=== PATIENT | female | born 1955 | race African-American/Black ===

== ENCOUNTER → 2016-06-03 | Outpatient (CLI) | payer MEDICARE, MEDICAID ==
[~2016-06-03] MED LIST: ASPIRIN 81M81 MG/TA2 PO; ATRIPLA 600 MG-1 TAB PO; CALCIUM 600/VIT1 CAP PO; CELEXA 20MG20 MG/TAB PO; CLARITIN 1010 MG/TAB PO; COLACE 100100 MG/CAP PO; CYTOTEC 10100 MCG/TA PO; CYTOTEC200 MCG PO; FLOVENT 220MCG7.9 GM IH; FOSAMAX 70MG TA70 MG PO; LIPITOR20 MG PO; MOBIC 7.5MG7.5 MG PO; NEOSPORIN1 OIN OP; NORVASC 10MG10 MG PO; NYSTATIN AND TR1 CRE TP; PRILOSEC 20MG20 MG PO; PRINZIDE 25 MG-1 TAB PO; PROCARDIA XL 6060 MG PO; SINGULAIR 110 MG/TAB PO; VALTREX 50500 MG/TAB PO; VENTOLIN0.09 MG IH; VITAMIN B COMPL1 TA1 PO; VITAMIN D1000 IU PO; VOLTAREN 75 DR75 MG PO; [UNRECOGNIZED DRUG - OTHER] PO
== END ==
LOC: COL.VAS 09:12
DX: R06.02 Shortness of breath (principal); R94.2 Abnormal results of pulmonary function studies

== ENCOUNTER → 2017-07-07 | Outpatient (CLI) | payer MEDICARE, MEDICAID | LOC: COL.PUL 12:33 | DX: I27.20 Pulmonary hypertension, unspecified (principal); R06.02 Shortness of breath; Z87.891 Personal history of nicotine dependence | CPT/HCPCS: A9539; A9540; J7674 ==

== ENCOUNTER 2017-07-11 05:02 | Emergency (ER) | payer MEDICARE, MEDICAID ==
[~2017-07-11] VITALS: Ht 167.6 cm; Wt 68.2 kg
[2017-07-11 05:10] VITALS: TEMP 98
[2017-07-11 05:33] LABS: BASO % 0.6 % (0.0-2.0); EOS # 0.1 (0.0-0.7); GRAN # 1.9 (1.4-6.5); HEMOGLOBIN 10.7 g/dl (12.5-16.0); LYMPH # 2.5 (1.2-3.4); LYMPH % 49.7 % (20.0-51.0); MEAN CELL VOLUME 106 fl (80.0-100.0); MEAN CORPUSCULAR HEMOGLOBIN 37 pg (27.0-31.0); MEAN CORPUSCULAR HGB CONC 35 g/dl (33.0-37.0); MEAN PLATELET VOLUME 10.1 fl (7.4-10.4); MONO # 0.5 (0.1-0.6); MONO % 9.1 % (1.7-9.3); PLATELET COUNT 256 K/mm3 (130-400); RED BLOOD COUNT 2.87 M/mm3 (4.10-5.30); REDCELL DISTRIBUTION WIDTH-CV 12.5 % (11.5-14.5)
[2017-07-11 05:36] LABS: HEMATOCRIT 30.3 % (37.0-47.0)
[2017-07-11] MEDS ORDERED: ZYRTEC 10MG10 MG PO (07:45)
[2017-07-11] MEDS ORDERED: RELAFEN750 MG PO (07:46)
[2017-07-11 07:53] VITALS: BP 158/92; PULSE 82
== END 2017-07-11 07:58 | disposition home or self-care (01) ==
LOC: COL.ER 05:02
PROVIDERS: Emergency Medicine
DX: R04.0 Epistaxis (principal); I10 Essential (primary) hypertension; E78.00 Pure hypercholesterolemia, unspecified; Z21 Asymptomatic human immunodeficiency virus [HIV] infection status; Z79.82 Long term (current) use of aspirin; Z79.51 Long term (current) use of inhaled steroids

== ENCOUNTER 2017-07-14 06:08 | Day surgery (SDC) | payer MEDICARE, MEDICAID ==
[~2017-07-14] VITALS: Ht 167.6 cm; Wt 69.1 kg
[2017-07-14] VITALS (667 sets, daily range): BP systolic 114–167; BP diastolic 72–108; PULSE 73–94; TEMP 97.7–98.9; O2SAT 94–100
[~2017-07-14 06:08] MED LIST changes: +PRIL40 PO; -PRILOSEC 20MG20 MG PO; -PROCARDIA XL 6060 MG PO; +PROCARDIA XL90 MG PO; +RELAFEN750 MG PO; +ZYRTEC 10MG10 MG PO
[2017-07-14 07:06] LABS: PROTHROMBIN TIME 11.5 SECONDS (9.7-12.8)
[2017-07-14] MEDS ORDERED: MULTI VITAMINS1 TAB PO (07:08)
[2017-07-14 07:09] LABS: HEMOGLOBIN 10.1 g/dl (12.5-16.0); MEAN CELL VOLUME 107 fl (80.0-100.0); MEAN CORPUSCULAR HEMOGLOBIN 37 pg (27.0-31.0); MEAN CORPUSCULAR HGB CONC 35 g/dl (33.0-37.0); MEAN PLATELET VOLUME 10.3 fl (7.4-10.4); PLATELET COUNT 221 K/mm3 (130-400); RED BLOOD COUNT 2.73 M/mm3 (4.10-5.30); REDCELL DISTRIBUTION WIDTH-CV 12.6 % (11.5-14.5)
[2017-07-14] MEDS ORDERED: SYSTANE 0.4%-0.1 SOL OP (07:11)
[2017-07-14 07:12] LABS: HEMATOCRIT 29.2 % (37.0-47.0)
[2017-07-14] MEDS ORDERED: ATARAX 25MG25 MG/TAB PO (07:12)
[2017-07-14 07:24] LABS: CREATININE, serum 1.11 mg/dL (0.52-1.25); POTASSIUM 3.9 mmol/L (3.4-5.0)
[2017-07-14 09:42] LABS: ARTERIAL BLOOD GAS BASE EXCESS -2.2 (-2-2); ARTERIAL BLOOD GAS HCO3 21.9 meq/L (22-26); ARTERIAL BLOOD GAS PCO2 34.6 mmHg (35-45); ARTERIAL BLOOD GAS PO2 59.1 mmHg (80-100); ARTERIAL BLOOD GAS pH 7.42 (7.35-7.45)
[2017-07-15] VITALS (27 sets, daily range): BP systolic 107–131; BP diastolic 56–72; PULSE 77–101; TEMP 97.6–98.6; O2SAT 93–99
[2017-07-15 07:33] LABS: BASO % 0.7 % (0.0-2.0); EOS # 0.1 (0.0-0.7); GRAN # 1.7 (1.4-6.5); GRAN % 40.2 % (42.2-75.2); LYMPH # 1.9 (1.2-3.4); LYMPH % 44.9 % (20.0-51.0); MEAN CELL VOLUME 107 fl (80.0-100.0); MEAN CORPUSCULAR HGB CONC 34 g/dl (33.0-37.0); MEAN PLATELET VOLUME 10.7 fl (7.4-10.4); MONO # 0.5 (0.1-0.6); MONO % 10.7 % (1.7-9.3); PLATELET COUNT 209 K/mm3 (130-400); RED BLOOD COUNT 2.64 M/mm3 (4.10-5.30); REDCELL DISTRIBUTION WIDTH-CV 12.8 % (11.5-14.5)
[2017-07-15 07:34] LABS: HEMATOCRIT 28.2 % (37.0-47.0); HEMOGLOBIN 9.7 g/dl (12.5-16.0); MEAN CORPUSCULAR HEMOGLOBIN 37 pg (27.0-31.0)
[2017-07-15 07:40] LABS: CALCIUM 9.2 mg/dL (8.4-10.2); CREATININE, serum 0.98 mg/dL (0.52-1.25)
[2017-07-15] MEDS ORDERED: LIPITOR 40MG TA40 MG PO (11:38)
[2017-07-15] MEDS ORDERED: TOPROL XL 25MG25 MG PO (11:38)
[2017-07-15] MEDS ORDERED: BRILINTA90 MG PO (11:38)
== END 2017-07-15 14:30 | disposition home or self-care (01) ==
LOC: COL.CAR 06:08 → ICU 10:15 → MEDICAL 07-15 00:55 → COL.CAR 07-15 14:30
PROVIDERS: Internal Medicine Cardiovascular Disease; Nurse Practitioner
DX: I25.10 Atherosclerotic heart disease of native coronary artery without angina pectoris (principal); N28.1 Cyst of kidney, acquired; I27.20 Pulmonary hypertension, unspecified; I11.0 Hypertensive heart disease with heart failure; E78.5 Hyperlipidemia, unspecified; K21.9 Gastro-esophageal reflux disease without esophagitis; Z87.891 Personal history of nicotine dependence; Z79.82 Long term (current) use of aspirin; L97.909 Non-pressure chronic ulcer of unspecified part of unspecified lower leg with unspecified severity; B20 Human immunodeficiency virus [HIV] disease; J45.909 Unspecified asthma, uncomplicated; I73.9 Peripheral vascular disease, unspecified; Z95.820 Peripheral vascular angioplasty status with implants and grafts; Z79.899 Other long term (current) drug therapy; Z79.02 Long term (current) use of antithrombotics/antiplatelets; Z86.73 Personal history of transient ischemic attack (TIA), and cerebral infarction without residual deficits
CPT/HCPCS: OP; C1760; C1769; C1874; C1887; C1894; C9600; J0583; J2250; J3010; Q9967